=== PATIENT | female | born 2000 | race Caucasian/White ===

== ENCOUNTER 2024-08-24 09:56 | Outpatient (AMB) | payer OTHER, SELFPAY ==
--- NOTE | 2024-08-24 10:25 | MHC.PC.OV ---
Vital Signs 08/24/24 10:40 Height 5 ft 5 in Weight 130 lb 4 oz BMI 21.7 BP 122/60 Blood Pressure Location Lt brachial Position Sitting Respiration 12 Pulse 52 Pulse Source Pulse Oximeter Temp 98.4 F Temp Source Oral Pulse Oximetry (%) 100 Oxygen Delivery Method Room Air Intake Visit Reasons: CLINICAL SUPPORT SPECIALIST EST CARE - Intake Note: patient is scheduled for a new patient visit to establish care with pcp Occup Therapist Required: No Is last menstrual period known: Yes Last menstrual period: 08/11/24 Post menopausal: No Patient : No Allergies No Known Allergies Allergy (Verified 08/24/24 10:39) HPI CLINICAL SUPPORT SPECIALIST EST CARE - HPI Details New Patient? ?? Prior PCP:? Dr James in [place] Last office visit/CPE:? 1 yr Acute issue(s):? Wants New UNDERLINER Wants referral to her Respiratory Care Faculty Anxiety & Depression Dr King Stewart. GI sxs ?? PMHx:? Anxiety/Depression, Boderline pd. Acne, Dermatitis GI problems SurgHx:?Nemours teeth FHx:? Denies SocHx:? Studying Bio & Music. Vapes, EtOH 1-2 dr 1-2 times a week. MJ Daily. No other drugs PFSH Medical History (Updated 08/24/24 @ 10:49 by Jim Winkler) Seborrheic dermatitis Acne Chronic abdominal pain Borderline personality disorder Depression Anxiety Family History (Updated 08/24/24 @ 10:37 by TIP Nice) Maternal Grandfather History of high cholesterol Father Alcoholism Mother Psychiatric disorder Maternal Grandmother Psychiatric disorder Social History (Updated 08/24/24 @ 10:38 by TIP Nice) Use of substances other than those prescribed or required for medical reasons: Yes Substance Use Type: Marijuana Substance Use Frequency: Daily Patient : No Female Reproductive History Menstrual Date of last menstrual period: 08/11/24 Questionnaire PHQ-9 Over the last 2 weeks, how often have you been bothered by any of the following problems? 1. Little interest or pleasure in doing things: several days 2. Feeling down, depressed, or hopeless: nearly every day 3. Trouble falling or staying asleep, or sleeping too much: several days 4. Feeling tired or having little energy: nearly every day 5. Poor appetite or overeating: several days 6. Feeling bad about yourself - or that you are a failure or have let yourself or your family down: more than half the days 7. Trouble concentrating on things, such as reading the newspaper or watching television: several days 8. Moving or speaking so slowly that other people could have noticed. Or the opposite - being so fidgety or restless that you have been moving around a lot more than usual: several days 9. Thoughts that you would be better off or of hurting yourself in some way: several days Total score: 14 Depression Screening Interpretation: Positive Depression Screening Follow-up: In treatment Depression Screening Done: Yes 41882 - PHQ-9 Billing: Yes Source: Developed by Drs. Rayshawn Lorenzo, Yissel Whitlock, Nehemiah Pabon and colleagues, with an educational stephanie from [employer]. Thrive Questionnaire Date Thrive assessed: 08/24/24 I am a: Patient What is your living situation today?: I have a steady place to live Within the past 12 months, did the food you bought not last and you didn't have the money to get more?: Never true Within the past 12 months, did you worry whether your food would run out before you got money to buy more?: Never true Do you have trouble paying for medicines?: No Do you have trouble getting transportation to medical appointments?: No Do you have trouble paying your heating and electricity bill?: No Do you have trouble taking care of your child, family member or friend?: No Do you have trouble with day-to-day activities such as bathing, preparing meals, shopping, managing finances, etc.?: No Are you currently unemployed and looking for a job?: No Are you interested in more education?: Yes Please select the resources that you would like help with: None Currently or been in a relationship where the following occur: No concerns reported THRIVE Score: 0 AUDIT C Alcohol Use Questionnaire (AUDIT-C) 1. How often do you have a drink containing alcohol?: 2-3 times a week 2. How many drinks containing alcohol do you have on a typical day when you are drinking?: 1 or 2 3. How often do you have six or more drinks on one occasion?: Less than monthly Total Score: 4 Score Reviewed/Action Taken: Yes TYESHA-7 AMB Questionnaire TYESHA-7 Date TYESHA - 7 assessed: 08/24/24 Feeling nervous, anxious, or on edge: 3 = Nearly every day Not being able to stop or control worryin = More than half the days Worrying too much about different things: 3 = Nearly every day Trouble relaxin = Nearly every day Being so restless that it is hard to sit still: 3 = Nearly every day Becoming easily annoyed or irritable: 3 = Nearly every day Feeling afraid as if something awful might happen: 1 = Several days Total TYESHA-7 score (0-4 normal; 5-9 mild; 10-14 moderate; 15-21 severe): 18 Source: Developed by Drs. Rayshawn Lorenzo, Yissel Whitlock, Nehemiah Pabon and colleagues, with an educational stephanie from [employer]. TYESHA-7 Assessment Billing TYESHA-7 Assessment Tool: TYESHA-7 Assessment 51669 Review of Systems Const Denies chills, Denies fatigue, Denies fever(s), Denies headache(s) and Denies weakness ENT Denies dizziness and Denies headache(s) Card Denies chest pain, Denies lightheadedness, Denies dyspnea and Denies other (Palpitations) Resp Denies cough, Denies dyspnea, Denies wheezing and Denies other ( shortness of breath) Musc Denies numbness and Denies tingling Neuro Denies dizziness, Denies headache(s), Denies numbness, Denies tingling, Denies paresthesias and Denies weakness Psych Denies anxiety and Denies depression Endo Denies fatigue Aller/Immun Denies wheezing Physical exam (Primary Care) Vital Signs: Last Vital Signs Temp 98.4 F 08/24/24 10:40 Pulse 52 08/24/24 10:40 Resp 12 08/24/24 10:40 BP 122/60 08/24/24 10:40 Pulse Ox 100 08/24/24 10:40 Oxygen Delivery Method Room Air 08/24/24 10:40 BMI result Body Mass Index 21.7 PHQ-9: PHQ-9 Score PHQ-9: Total score 14 08/24/24 10:45 Depression Screening Interpretation: Positive Depression Screening Follow-up: In treatment Thrive Assessment: Date of Thrive Assessment Date Thrive assessed 08/24/24 08/24/24 10:41 Currently or been in a relationship where the following occur: No concerns reported Const General: no acute distress and well developed Nutritional Appearance: well nourished Orientation/consciousness: patient oriented x3 HENMT Head: Yes normocephalic and Yes atraumatic Eyes General: appearance normal, both eyes and all related structures Pupils: Equal, round and reactive pupils present EOM: EOMs intact bilaterally Resp Effort & Inspection: normal respiratory effort Auscultation: clear to auscultation bilaterally Cardio Rate: regular rate Rhythm: regular rhythm Heart sounds: S1 normal heart sound present, S2 normal heart sound present, no gallops, no murmurs and no rubs Neuro General: patient oriented x3 and gait normal Cranial nerves: Yes Equal, round and reactive pupils present Psych Affect: normal affect Coding Level of Care Code New Pt Level 3 (15358) Diagnoses Depression with anxiety F41.8 Chronic abdominal pain R10.9; G89.29 Acne L70.9 Laboratory exam ordered as part of routine general medical examination Z00.00 Additional Codes TYESHA-7 Assessment Billing - TYESHA-7 Assessment Tool: TYESHA-7 Assessment 77489 ([id number]) PHQ-9 - 67967 - PHQ-9 Billing: Yes ([id number]) Assessment & Plan Assessment & Plan (1) Depression with anxiety: Code(s): F41.8 - Other specified anxiety disorders Category: Medical Plan: Currently?has?psychiatrist?and?is?in?treatment.??Had?recent?change?in?her?medication Contracts?for?safety Continue?current?medication?and?follow-up?with?Psychiatry?as?recommended (2) Chronic abdominal pain: Code(s): R10.9 - Unspecified abdominal pain; G89.29 - Other chronic pain Category: Medical Plan: Patient?notes?that?she?had?a?negative?GI?panel?in?the?past. Increase?water?intake Try?soluble?fiber If?she?is?still?having?difficulty,?will?make?a?referral?to?gastroenterology (3) Acne: Code(s): L70.9 - Acne, unspecified Category: Medical Plan: Referred?back?to?her?peoplesoft hcm consultant?at?[facility] (4) Laboratory exam ordered as part of routine general medical examination: Code(s): Z00.00 - Encounter for general adult medical examination without abnormal findings Category: Medical Plan: Check?labs Orders: Orders Comprehensive [place]. Panel Fast Today Z00.00 - Encounter for general adult medical examination without abnormal findings Complete Blood Count Auto Diff Today Z00.00 - Encounter for general adult medical examination without abnormal findings Microalbumin, Random (w Creat) Today I10 - Essential (primary) hypertension Lipid Panel Today Z00.00 - Encounter for general adult medical examination without abnormal findings TSH reflex Free T4 Today Z00.00 - Encounter for general adult medical examination without abnormal findings UA CC w/rflx Micro + Cult Today Z00.00 - Encounter for general adult medical examination without abnormal findings CT NG by PCR Today Z11.3 - Encounter for screening for infections with a predominantly sexual mode of transmission HIV Ab/Ag Today Z11.3 - Encounter for screening for infections with a predominantly sexual mode of transmission Hepatitis B,C Profile Today Z11.3 - Encounter for screening for infections with a predominantly sexual mode of transmission Syphilis Screen Today Z11.3 - Encounter for screening for infections with a predominantly sexual mode of transmission Referrals DEPUTY SHERIFF CHIEF Referral Z12.4 - Encounter for screening for malignant neoplasm of cervix Dermatology Referral L30.9 - Dermatitis, unspecified, L70.9 - Acne, unspecified Medications: New calcium polycarbophil (FiberCon) 625 mg PO DAILY 30 days 30 tabs 2RF L70.9 - Acne, unspecified
[2024-08-24 10:40] VITALS: BP 122/60; PULSE 52; RESP 12; TEMP 36.9; O2SAT 100; BMI 21.7
--- OUTSIDE RECORDS SUMMARY | 2024-08-24 11:29 | XMS_ITS | Encounter Summary ---
Author Organization [facility] Address [address] [place] [phone] Phone Care Team Providers Care Pasteurizer Name Role Phone Nohemi Flood MD Primary Care Provider [phone] Reason for Visit * Reason Onset Date Comments Med Refill Med Refill 05/28/2018 Encounter Details Date Type Department Care Team (Late st Contact Info) Description 05/25/2018 Refill [facility] - [address], [address] [place] [address] Nohemi Flood MD [address] [place] [address] Anxiety; Depressed mood Social History Tobacco Use Types Packs/Day Years Used Date Smoking Tobacco: Never Alcohol Use Standard Drinks/Week Comments No 0 (1 standard drink = 0.6 oz pur e alcohol) Hunger/Food Answer Date Recorded No 05/27/2018 Stable Housing Answer Date Recorded 0 05/27/2018 Transportation Concerns Answer Date Rec orded No 05/27/2018 Hazards in Home Answer Date Recorded No 05/27/2018 Financing Utilities Answer Date Recorde d No 05/27/2018 Safety at Home Answer Date Recorded No 05/27/2018 Outside Support Answer Date Recorded No 05/27/2018 Understanding Health Concerns Answer Da te Recorded No 05/27/2018 Financing Health Concerns Answer Date R ecorded No 05/27/2018 Missing School or Work Answer Date Douglas rded No 05/27/2018 Comments No Sex and Gender Information Value Date Recorded Sex Assigned at Not on file Legal Sex Female 5:44 PM EST Gender Identity Other 05/20/2021 12:16 PM EST Sexual Orientation Not on file documented as of this encounter Miscellaneous Notes * Telephone Encounter - Nohemi Flood MD - 05/28/2018 8:31 AM EST Pt had med recheck appt scheduled 06-22-2018. * Telephone Encounter - Rosmery Clifton LPN - 05/27/2018 4:06 PM EST Mom calling; requesting refill on Fluoxetine 10 mg and 40 mg daily. [facility]. documented in this encounter Plan of Treatment Not on file documented as of this encounter Visit Diagnoses Diagnosis Anxiety Anxiety state, unspecified Depressed mood documented in this encounter Care Teams Pasteurizer Relationship Specialty Start Date End Date Nohemi Flood MD [address] [place] [address] PCP - General Pediatrics 02/03/17 07/31/22 documented as of this encounter
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
--- OUTSIDE RECORDS SUMMARY | 2024-08-24 11:30 | XMS_ITS ---
Author Name [facility] Organization Unknown Encounters Encounter Type Encounter Reason Primary Diagnosis Location Date Ambulatory [facility], [facility]. ([facility]) 05/22/2024
--- OUTSIDE RECORDS SUMMARY | 2024-08-24 11:30 | XMS_ITS | Encounter Summary ---
Author Organization [facility] Address [address] [place] [address] Phone Care Team Providers Care Software Release Manager Name Role Phone Nohemi Flood MD Primary Care Provider [phone] Reason for Visit * Reason Comments Med Refill Encounter Details Date Type Department Care Team (Late st Contact Info) Description 06/03/2020 Refill [facility] Pediatrics - [place] [address] [place] [address] Nohemi Flood MD [address] [place] [address] Depressed mood; Anxiety Social History Tobacco Use Types Packs/Day Years Used Date Smoking Tobacco: Never Alcohol Use Standard Drinks/Week Comments No 0 (1 standard drink = 0.6 oz pur e alcohol) Hunger/Food Answer Date Recorded In the last 12 months, did y ou or your family ever eat less than you felt you should because there wasn't enough money for food? No 09/30/2019 Stable Housing Answer Date Recorded Are you worried that in the next 2 months you may not have stable housing? No 09/30/2019 Transportation Concerns Answer Date Rec orded In the last 12 months, have you or your family ever had to go without healthcare because you didn't have a way to get there? No 09/30/2019 Hazards in Home Answer Date Recorded Think about the place you li ve. Do you have problems with any of the following? Pests (mice or roaches), mold, no/not working smoke detectors, water leaks, no window guards. No 2019 Financing Utilities Answer Date Recorde d In the last 12 months, has t he electric, gas, oil, or water company threatened to shut off your services in your home? No 09/30/2019 Safety at Home Answer Date Recorded Are you or your family worried about feeling saf e in your home? No 09/30/2019 Outside Support Answer Date Recorded Do you feel that you need mo re support from other people or programs to help you care for yourself or your family? No 09/30/2019 Understanding Health Concerns Answer Da te Recorded Do you need help understandi ng your or your child's healthcare needs (diagnosis, medications, plan, etc.)? No 09/30/2019 Financing Health Concerns Answer Date R ecorded In the last 12 months, was t here a time when your child needed to see a doctor or get medications or supplies but could not because of cost? No 09/30/2019 Missing School or Work Answer Date Douglas rded Did you or your child miss s chool or work because of a health problem that could have been avoided? No 09/30/2019 Comments No Sex and Gender Information Value Date Recorded Sex Assigned at Not on file Legal Sex Female 5:44 PM EST Gender Identity Other 05/20/2021 12:16 PM EST Sexual Orientation Not on file documented as of this encounter Plan of Treatment Not on file documented as of this encounter Visit Diagnoses Diagnosis Depressed mood Anxiety Anxiety state, unspecified documented in this encounter Care Teams Software Release Manager Relationship Specialty Start Date End Date Nohemi Flood MD [address] [place] [address] PCP - General Pediatrics 02/03/17 07/31/22 documented as of this encounter
--- OUTSIDE RECORDS SUMMARY | 2024-08-24 11:30 | XMS_ITS | Encounter Summary ---
Author Organization [facility] Address [address] [place] [address] Phone Care Team Providers Care Machine Baster Name Role Phone Nohemi Flood MD Primary Care Provider [phone] Reason for Visit * Reason Comments Med Refill Encounter Details Date Type Department Care Team (Late st Contact Info) Description 10/19/2020 Refill [facility] Pediatrics - [place] [address] [place] [address] Nohemi Flood MD [address] [place] [address] Depressed mood; Anxiety Social History Tobacco Use [...] unspecified documented in this encounter Care Teams Machine Baster Relationship Specialty Start Date End Date Nohemi Flood MD [address] [place] [address] PCP - General Pediatrics 02/03/17 07/31/22 documented as of this encounter
--- OUTSIDE RECORDS SUMMARY | 2024-08-24 11:30 | XMS_ITS | Encounter Summary ---
Author Organization [facility] Address [address] [place] [address] Phone Care Team Providers Care Senior Mechanical Project Manager Name Role Phone Nohemi Flood MD Primary Care Provider Encounter Details Date Type Department Care Team (Late st Contact Info) Description 12/18/2016 Conversion Encounter [facility] Pediatrics - [address], [address] [place] [address] Sayda Collado NP [address] [place] [address] Social History Tobacco Use Types Packs/Day Years Used Date Smoking Tobacco: Never Assessed Comments Unknown Sex and Gender Information Value Date Recorded Sex Assigned at Not on file Legal Sex Female 5:44 PM EST Gender Identity Other 05/20/2021 12:16 PM EST Sexual Orientation Not on file documented as of this encounter Plan of Treatment Not on file documented as of this encounter Visit Diagnoses Not on filedocumented in this encounter Care Teams Senior Mechanical Project Manager Relationship Specialty Start Date End Date Nohemi Flood MD [address] [place] [address] PCP - General Pediatrics 02/03/17 07/31/22 documented as of this encounter
== END 2024-08-24 11:05 | disposition home or self-care (01) ==
PROVIDERS: PCP Family Medicine; Visit Provider Family Medicine
DX: F41.8 Other specified anxiety disorders (principal); R10.9 Unspecified abdominal pain; G89.29 Other chronic pain; L70.9 Acne, unspecified; Z00.00 Encounter for general adult medical examination without abnormal findings

== ENCOUNTER → 2024-08-24 09:56 | Outpatient (BNVA) | payer OTHER, SELFPAY | PROVIDERS: PCP Family Medicine; Visit Provider Family Medicine | DX: Z76.89 Persons encountering health services in other specified circumstances (principal); F41.8 Other specified anxiety disorders; R10.9 Unspecified abdominal pain; G89.29 Other chronic pain; L70.9 Acne, unspecified | CPT/HCPCS: 96127 ==

== ENCOUNTER 2024-09-28 11:07 | Outpatient (REF) | payer OTHER, SELFPAY ==
--- OUTSIDE RECORDS SUMMARY | 2024-09-28 12:25 | XMS_ITS | Encounter Summary ---
Author Organization [facility] Address [address] [place] [address] Phone Care Team Providers Care Refinery Operator Coking Name Role Phone Nohemi Flood MD Primary Care Provider [phone] Encounter Details Date Type Department Care Team (Late st Contact Info) Description 12/18/2016 Conversion Encounter [facility] Pediatrics - [address], [address] [place] [address] Sayda Collado NP [address] [place] [address] Social History Tobacco Use Types Packs/Day Years [...] on filedocumented in this encounter Care Teams Refinery Operator Coking Relationship Specialty Start Date End Date Nohemi Flood MD [address] [place] [address] PCP - General Pediatrics 02/03/17 07/31/22 documented as of this encounter
--- OUTSIDE RECORDS SUMMARY | 2024-09-28 12:25 | XMS_ITS | Encounter Summary ---
Author Organization [facility] Address [address] [place] [address] Phone Care Team Providers Care Care Services Manager Name Role Phone Nohemi Flood MD Primary Care Provider [phone] Reason for Visit * Reason Comments Med Refill Encounter Details Date Type Department Care Team (Late st Contact Info) Description 06/03/2020 Refill [facility] Pediatrics - [place] [address] [place] [address] Nohemi Flood MD [address] [place] [address] Depressed mood; Anxiety Social History Tobacco Use [...] unspecified documented in this encounter Care Teams Care Services Manager Relationship Specialty Start Date End Date Nohemi Flood MD [address] [place] [address] PCP - General Pediatrics 02/03/17 07/31/22 documented as of this encounter
--- OUTSIDE RECORDS SUMMARY | 2024-09-28 12:25 | XMS_ITS | Encounter Summary ---
Author Organization [facility] Address [address] [place] [address] Phone Care Team Providers Care Pipe Changer Name Role Phone Nohemi Flood MD Primary Care Provider [phone] Reason for Visit * Reason Onset Date Comments Med Refill Med Refill 05/28/2018 Encounter Details Date Type Department Care Team (Late st Contact Info) Description 05/25/2018 Refill [facility] Pediatrics - [address], [address] [place] [address] Nohemi Flood MD [address] [place] [address] Anxiety; Depressed mood Social History Tobacco Use [...] mood documented in this encounter Care Teams Pipe Changer Relationship Specialty Start Date End Date Nohemi Flood MD [address] [place] [address] PCP - General Pediatrics 02/03/17 07/31/22 documented as of this encounter
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
--- OUTSIDE RECORDS SUMMARY | 2024-09-28 12:25 | XMS_ITS | Encounter Summary ---
Author Organization [facility] Address [address] [place] [address] Phone Care Team Providers Care Health Plan Specialist Name Role Phone Nohemi Flood MD Primary Care Provider [phone] Reason for Visit * Reason Comments Med Refill Encounter Details Date Type Department Care Team (Late st Contact Info) Description 10/19/2020 Refill [facility] Pediatrics - [place] [address] [place] [address] Nohemi Flood MD [address] [place] [address] Depressed mood; Anxiety Social History Tobacco Use [...] unspecified documented in this encounter Care Teams Health Plan Specialist Relationship Specialty Start Date End Date Nohemi Flood MD [address] [place] [address] PCP - General Pediatrics 02/03/17 07/31/22 documented as of this encounter
--- OUTSIDE RECORDS SUMMARY | 2024-09-28 12:25 | XMS_ITS | Data Portability ---
Author Organization [facility] Address [address] [place] [address] Assessment No assessment recorded. Plan of Treatment Reminders Order Date Submit Date Provider Last Modified By Organization Details Last Modified Time Details Appointments None recorded. Lab rapid flu (A+B) 2024 025 [email or web address] [facility], [address] [place] [address], [id number], 19:27:27 SARS CoV 2 (COVID-19) Ag, QL, IA, upper respiratory specimen 2024 025 [email or web address] [facility], [address] [place] [address], [phone], 19:27:27 Referral None recorded. Procedures None recorded. Surgeries None recorded. Imaging electrocard iogram 2024 025 [email or web address] [facility], [address] [place] [address], [phone], 19:38:46 Medication Orders Tamiflu 75 mg capsule 2024 025 [facility] #[id number], [phone] [place], [address], 19:35:38 Patient TargetsNo targets recorded. Patient Instructions Encounter Date Encounter Id Patient Instructions Last Modified By Organization Details Last Modified Time 05/22/2024 [id number] influenza (flu): care instructions [email or web address] Not available 05/22/2024 19:33:12 Reason for Referral None Reported. Results Created Date Observation Date Name Description Value Unit Range Abnormal Flag Note LastModifiedBy Organization Detail LastModifiedTime 05/22/19 25 05/22/2024 rapid flu (A+B) Unknown Analyte positi ve Not Available [facility] [address] [place] [address], [phone], 05/22/2024 19:03:39 05/22/19 25 05/22/2024 rapid flu (A+B) Unknown Analyte negati ve Not Available [facility] [address] [place] [address], [id number], 05/22/2024 19:03:39 05/22/19 25 05/22/2024 rapid flu (A+B) Unknown Analyte yes Not Available [facility] [address] [place] [address], [id number], 05/22/2024 19:03:39 05/22/19 25 05/22/2024 SARS CoV 2 (COVI D-19) Ag, QL, IA, upper respi rator y speci men Unknown Analyte negati ve Not Available [facility] [address] [place] [address], [id number], 05/22/2024 19:03:51 05/22/19 25 05/22/2024 SARS CoV 2 (COVI D-19) Ag, QL, IA, upper respi rator y speci men Unknown Analyte yes Not Available [facility] [address] [place] [address], [id number], 05/22/2024 19:03:51 05/22/19 25 05/22/2024 martin thomas am No observ ation record ed. JOANIE [facility] [address] [place] [address], [phone], 05/22/2024 19:27:16 05/23/19 25 martin thomas am No observ ation record ed. [facility] [address], [address], 05/23/2024 18:07:58 Result Notes None recorded. Problems Name Problem SNOMED Code Status Onset Date Resolution Date Notes Provider Name and Address Organization Details Recorded Time Anxiety 39829585 Active Brie Abel null, PA - [facility] 19:02:11 Depressive disorder 80276331 Active Brie Abel null, PA - [facility] 19:02:22 Personality disorder 09020757 Active Brie Abel null, PA - [facility] 19:02:32 Problem Notes None recorded. Procedures Surgical History None recorded. Imaging Results Imaging Date Name Status LastModified by Organization Details LastModified Time 05/22/2024 electrocardiogram completed JESSIE [id number], [address], 05/22/2024 19:27:16 05/23/2024 electrocardiogram completed JESSIE [address], [phone], 05/23/2024 18:07:58 Procedure Notes None recorded. Medical Equipment None Reported. Allergies No known drug allergies Medications Name Sig Start Date Stop Date Status Note LastModified by Organization Details LastModified Time lamotrigine 200 mg tablet TAKE ONE TABLET BY MOUTH EVERY DAY active Not Available Not Available No t Available ketoconazol e 2 % shampoo USE SHAMPOO ON THE SCALP ONCE-TWIC E WEEKLY ; LATHER AND LET SIT FOR ABOUT 10 MINUTES AND THEN RINSE WITH A MOISTURIZ ING SHAMPOO 05/22 completed Not Available Not Available Not Available ibuprofen 800 mg tablet TAKE ONE TABLET BY MOUTH EVERY 8 HOURS NEEDED FOR PAIN 05/22 completed Not Available Not Available Not Available Tamiflu 75 mg capsule Take 1 capsule twice a day by oral route for 5 days. 2024 active Not Available Not Available Not Avai lable clindamycin 1 % topical gel APPLY A THIN LAYER TO FACE TWICE DAILY. FOLLOW WITH A MOISTURIZ ER active Not Available Not Available No t Available hydrocortis one 1 % topical cream APPLY TOPICALLY TWO TIMES A DAY active Not Available Not Available No t Available escitalopra m 10 mg tablet TAKE 1 &1/2 TABLETS BY MOUTH DAILY 05/22 completed Not Available Not Available Not Available escitalopra m 20 mg tablet TAKE ONE TABLET BY MOUTH EVERY DAY active Not Available Not Available No t Available (21) 1.5 mg-30 mcg tablet TAKE ONE TABLET BY MOUTH EVERY DAY active Not Available Not Available No t Available (28) 1.5 mg-30 mcg (21)/75 mg (7) tablet TAKE ONE TABLET BY MOUTH EVERY DAY AT THE SAME TIME EACH DAY active Not Available Not Available No t Available mometasone 0.1 % topical solution APPLY SOLUTION TO THE SCALP TWICE DAILY X UP TO 2 WEEKS AT A TIME ; NEEDED FOR ITCHING OR FLAKING ; BREAK ONE WEEK AND REPEAT NEEDED 05/22 completed Not Available Not Available Not Available Vitals Date Recorded Oxygen saturation Oxygen saturation in Arterial blood by Pulse oximetry Heart rate Respiratory rate Body temperature Systolic blood pressure Diastolic blood pressure Provider Name and Address Organization Details Last Updated DateTime 98 % 98 % 80 /min 20 /min 99 [degF] 130 mm[Hg] 85 mm[Hg] Brie SANTOS - [email or web address] 19:01:19 Social History Question Answer Notes LastModified by [email or web address] Details LastModified Time Tobacco Smoking Status Never Smoker Brie parker PA - [facility] 05/22/2024 19:03:04 Which Illicit Or Recreational Drugs Have You Used? Marijuana Information not available 05/22/2024 Have You Had A Flu Shot This Season? No Information not available 05/22/2024 If No, Would You Like A Flu Shot Today? No Information not available 05/22/2024 What Is Your Water Source? Other Information not available 05/22/2024 What Is Your Heat Source? Other Information not available 05/22/2024 Are You Passively Exposed To Smoke? No Information no t available 05/22/2024 Have You Recently Traveled Abroad? No Information not available 05/22/2024 Are You Currently In School? No Information not available 05/22/2024 Sex: Unknown Functional Status Question Answer Note LastModified by Organizat ion Details LastModified Time How many times per week do you consume alcohol? Less than 1 time per week Information not available 05/22/2024 Do you use any illicit or recreational drugs? Yes Information not available 05/22/2024 Do you or have you ever used any other forms of tobacco or nicotine? No Information not available 05/22/2024 What is your level of alcohol consumption? Occasional Information not available 05/22/2024 Are you currently employed? Yes Information not available 05/22/2024 Mental Status None recorded. Family History Relationship Description Onset Age of this Age Resolved Age Notes LastModified by Organization Details LastModified Time Father No current problems or disability Not available 05/22 19:02:34 Mother No current problems or disability Not available 05/22 19:02:35 Medical History No medical history recorded. Gynecological History Statement/Question Response Date of LMP 05/12/2024 Is there any chance of ? No LMP Approximate Obstetrics History GPAL:G 0 P 0 0 0 0 Past Encounters Encounter ID Performer Location Encounter Start Date Encounter Closed Date Diagnosis/Indication Diagnosis SNOMED-CT Code Diagnosis ICD10 Code Diagnosis Note [id number] [facility] [address] [address] 09/05/2020 15:17:31 09/05/2020 16:08:16 [id number] [facility] [address] [address] 06/19/2018 13:46:34 06/19/2018 14:49:54 [id number] Praful Puga DO [address] [address] 05/22/2024 18:50:59 05/22/2024 19:38:46 Influenza caused by Influenza A virus [id number] J09.X2 Flu A positive Recommend plenty of fluidsTyle nol, Motrin for pain/fever Humidifier Nasal saline sprayNo need for antibiotic may last up to 2 weeksCall or RTC if worsening cough, SOB, high fever, rash, n/v/d and unable to hydrate Health Concerns Section Related Observation LastModified by Organization Detai ls LastModified Time None Recorded Concern Status LastModified by Organization Details LastModified Time None Recorded Advance Directives Directive None Recorded Payers Insurance Date Sequence Insurance Name Policy Number Policy Goodrich Covered Member ID Goodrich Member ID Guarantor Name 05/22/2024 1 [facility] [place] Rosana Singleton [id number] Rosana Singleton 05/22/2024 1 [facility] [place] [id number] Maragrita Serina Singleton [id number] Rosana Singleton Notes Date Note Type Note Provider Name and Address Organization Details Recorded Time 05/22/2024 text/html CoughReported bypatient.Notes:23 yo female c/o cough and congestion x 1 d+ anterior chest wall pain when she coughs neg home covid test non [place] h/o asthma No feverNo chillsNo nauseaNo vomitingNo wheezeNo difficulty breathing or respiratory distressNo CPNo sinus painNo ear painNo sore throatNo Abdominal painNo diarrheaNo myalgiaNo fatigueNo rashNo HANo dizzinessNo recent travelNo known sick contacts Praful Puga, DO [address] [place], [address], [place] - [facility] 05/22/2024 19:37:34 OBGyn Episode No OBEpisode recorded.
[2024-09-28 14:23] LABS: MANUAL DIFF FLAG NO
[2024-09-28 14:30] LABS: Basophils Percent Auto 0.9 % (0-2); Eosinophils Absolute Auto 0.3 X10*3/uL (0.0-0.4); Eosinophils Percent Auto 6.7 % (0-4); Hematocrit 41.3 % (37.0-47.0); Hemoglobin 14.4 g/dl (12.0-16.0); Lymphocytes Percent Auto 42.6 % (20-40); Mean Corpuscular HGB Conc 34.9 g/dl (31.0-35.0); Mean Corpuscular Hemoglobin 31.4 pg (27.0-33.0); Mean Platelet Volume 9.3 fL (9.4-12.3); Monocytes Absolute Auto 0.3 X10*3/uL (0.1-1.2); Monocytes Percent Auto 7.1 % (2-11); Neutrophils Percent Auto 42.7 % (45-73); Platelet Count 362 X10*3/uL (160-400); Red Blood Count 4.59 X10*6/uL (4.20-5.50); Red Cell Distribution Width 11.7 % (11.0-16.0); White Blood Count 4.6 X10*3/uL (4.8-10.8)
[2024-09-28 14:43] LABS: Alanine Aminotransferase 15 U/L (0-31); Alkaline Phosphatase 66 U/L (39-117); Anion Gap 12 (12-20); Aspartate Amino Transferase 20 U/L (5-31); Bilirubin Total 1.8 mg/dL (0.0-1.0); Blood Urea Nitrogen 6 mg/dL (9-16); Calcium 9.9 mg/dL (8.4-10.2); Carbon Dioxide 26 mmol/L (22-29); Chloride 104 mmol/L (96-108); Cholesterol 193 mg/dL (<200); Estimated Glomerular Filt Rate > 60; Glucose Fasting 81 mg/dL (60-99); HDL Cholesterol 70 mg/dL (>40); LDL Cholesterol Calculated 104 mg/dL (<100); Potassium 4.1 mmol/L (3.3-5.1); Sodium 138 mmol/L (135-145); Triglycerides 98 mg/dL (<150)
[2024-09-28 15:02] LABS: TSH reflex Free T4 1.77 uIU/mL (0.32-4.0)
[2024-09-29 03:30] LABS: Syphilis Screen Nonreactive (Nonreactive)
[2024-09-29 03:41] LABS: HBS Num1 0.22 mIU/mL (0-7.99); HBc Num1 0.04 S/CO (0.00-0.79); HBsAGNum1 0.41 S/CO (0.00-0.99); HIV AB/AG Nonreactive (Nonreactive); HIV Num 1 0.07 S/CO (0.00-0.99); Hepatitis B Core Antibody Nonreactive (Nonreactive); Hepatitis B Surface Antigen Negative (Negative); ~HepC Num1 0.08 S/CO (0.00-0.79); ~Hepatitis B Surface Antibody NONREACTIVE (Nonreactive); ~Hepatitis C Antibody Nonreactive (Nonreactive)
== END 2024-09-28 11:08 | disposition home or self-care (01) ==
LOC: HO.WFDLDS 11:07
PROVIDERS: Visit Provider Family Medicine
DX: Z00.00 Encounter for general adult medical examination without abnormal findings (principal); Z11.3 Encounter for screening for infections with a predominantly sexual mode of transmission
CPT/HCPCS: 36415; 80053; 80061; 84443; 85025; 86704; 86706; 86780; 86803; 87340; 87389

== ENCOUNTER 2024-12-06 17:44 | Outpatient (REF) | payer OTHER, SELFPAY ==
--- OUTSIDE RECORDS SUMMARY | 2024-12-06 17:47 | XMS_ITS ---
Author Name [facility] Organization Unknown Encounters Encounter Type Encounter Reason Primary Diagnosis Location Date Ambulatory [facility] ([facility] 05/22/2024
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
--- OUTSIDE RECORDS SUMMARY | 2024-12-06 17:47 | XMS_ITS | Data Portability ---
Author Organization [facility] Address [address] [place] [address] Assessment No assessment recorded. Plan of Treatment Reminders Order Date Submit Date Provider Last Modified By Organization Details Last Modified Time Details Appointments None recorded. Lab rapid flu (A+B) 2024 025 [email or web address] [address] [place] [address], [phone], 19:27:27 SARS CoV 2 (COVID-19) Ag, QL, IA, upper respiratory specimen 2024 [email or web address] [facility], [address] [place] [address], [phone], 19:27:27 Referral None recorded. Procedures None recorded. Surgeries None recorded. Imaging electrocard iogram 2024 025 [email or web address] [facility] [address] [place] [address], [id number], 19:38:46 Medication Orders Tamiflu 75 mg capsule 2024 025 [facility] #[id number], [phone] [place], [address], 19:35:38 Patient TargetsNo targets recorded. Patient Instructions Encounter Date Encounter Id Patient Instructions Last Modified By Organization Details Last Modified Time 05/22/2024 [id number] influenza (flu): care instructions [email or web address] Not available 05/22/2024 19:33:12 Reason for Referral None Reported. Results Created Date Observation Date Name Description Value Unit Range Abnormal Flag Note LastModifiedBy Organization Detail LastModifiedTime 05/22/1905/22/2024 rapid flu (A+B) Unknown Analyte positi ve Not Available [facility] [address] [place] [address], [phone], 05/22/2024 19:03:39 05/22/19 25 05/22/2024 rapid flu (A+B) Unknown Analyte negati ve Not Available [facility] [address] [place] [address], [phone], 05/22/2024 19:03:39 05/22/19 25 05/22/2024 rapid flu (A+B) Unknown Analyte yes Not Available [facility] [address] [place] [address], [phone], 05/22/2024 19:03:39 05/22/19 25 05/22/2024 SARS CoV 2 (COVI D-19) Ag, QL, IA, upper respi rator y speci men Unknown Analyte negati ve Not Available [facility] [address] [address] [place] [address], [phone], 05/22/2024 19:03:51 05/22/19 25 05/22/2024 SARS CoV 2 (COVI D-19) Ag, QL, IA, upper respi rator y speci men Unknown Analyte yes Not Available [facility] [address] [place] [address], [phone], 05/22/2024 19:03:51 05/22/19 25 05/22/2024 martin thomas am No observ ation record ed. JOANIE [facility] [address] [place] [address], [phone], 05/22/2024 19:27:16 05/23/19 25 elect barbara diogr am No observ ation record ed. [id number] [address] [place], [phone], 05/23/2024 18:07:58 Result Notes None recorded. Problems Name Problem SNOMED Code Status Onset Date Resolution Date Notes Provider Name and Address Organization Details Recorded Time Anxiety 01808884 Active Brie Abel null, PA - [facility] 19:02:11 Depressive disorder 04893874 Active Brie Abel null, PA - [facility] 19:02:22 Personality disorder 89001572 Active Brie Abel null, PA - [facility] 19:02:32 Problem Notes None recorded. Medical Equipment None Reported. [...] Not Available Not Available No t Available 1.5/30 (28) 1.5 mg-30 mcg (21)/75 mg (7) [...] Heart rate Respiratory rate Body temperature Systolic And Diastolic Provider Name and Address Organization Details Last Updated DateTime 98 % 98 % 80 /min 20 /min 99 [degF] 130/85 mm[Hg] Brie Roman [facility] 19:01:19 Social History Question Answer Notes LastModified by [place] Details LastModified Time Tobacco Smoking Status Never Smoker Brie parker [facility] 05/22/2024 19:03:04 Which Illicit Or Recreational [...] Functional Status Question Answer Note LastModified by [place] Details LastModified Time How many times per [...] SNOMED-CT Code Diagnosis ICD10 Code Diagnosis Note [id number] 20994_[facility] _[address] [phone] 09/05/2020 15:17:31 09/05/2020 16:08:16 [id number] 2099_[facility] _[address] [address] 06/19/2018 13:46:34 06/19/2018 14:49:54 [id number] Praful Puga DO _[address] [phone] 05/22/2024 18:50:59 05/22/2024 19:38:46 Influenza caused by Influenza A virus [id number] J09.X2 Flu A positive Recommend plenty of [...] Goodrich Member ID Guarantor Name 05/22/2024 1 [facility] [place] Rosana Singleton [id number] 3 Rosana Singleton 05/22/2024 1 [facility]: [facility] [place] [id number] Margarita Singleton [id number] Rosana Singleton OBGyn Episode No OBEpisode recorded.
[2024-12-06 17:52] LABS: Appearance Urine Cloudy; Glucose Urine UA Negative (Negative); PH 8.5 (5.0-9.0); Specific Gravity - Urine 1.015 (1.005-1.025); UMIC TRIGGER UACC YES
[2024-12-06 17:59] LABS: UACC Culture Trigger YES
[2024-12-06 18:06] LABS: Microalbum/Creatinine Ratio Ur 12.4 ug/mg cr (<30)
[2024-12-07 05:07] LABS: CT PCR Urine NOT DETECTED (Not Detect.); NG PCR Urine NOT DETECTED (Not Detect.)
== END 2024-12-06 17:45 | disposition home or self-care (01) ==
LOC: HO.LNP 17:44
PROVIDERS: Visit Provider Family Medicine
DX: Z11.3 Encounter for screening for infections with a predominantly sexual mode of transmission (principal); Z11.8 Encounter for screening for other infectious and parasitic diseases; I10 Essential (primary) hypertension; Z13.89 Encounter for screening for other disorder
CPT/HCPCS: 81001; 82043; 82570; 87086; 87491; 87591

== ENCOUNTER 2024-12-08 13:42 | Outpatient (AMB) | payer OTHER, SELFPAY ==
--- NOTE | 2024-12-08 14:10 | A.OFFPC_ITS ---
Vital Signs 12/08/24 14:12 Height 5 ft 5 in Weight 126 lb 4 oz BMI 21.0 BP 114/60 Blood Pressure Location Rt brachial Position Sitting Respiration 14 Pulse 63 Pulse Source Pulse Oximeter Temp 97.8 F Temp Source Oral Pulse Oximetry (%) 96 Oxygen Delivery Method Room Air Intake Visit Reasons: CPE with f/u labs and health maint. Intake Note: patient is scheduled for cpe Prescription Clerk Lenses Required: No Is last menstrual period known: Yes Last menstrual period: 11/29/24 Post menopausal: No Patient : No Allergies No Known Allergies Allergy (Verified 12/08/24 14:11) Medication List - Last Reconciled 12/08/24 by Mark Mcdonald MD calcium polycarbophil (FiberCon) 625 mg PO DAILY 30 days clindamycin phosphate 1% 1 appl topical BID escitalopram oxalate 20 mg PO DAILY ketoconazole 2% topical lamotrigine 200 mg PO DAILY norethindrone-e.estradiol-iron 1.5 mg-30 mcg ()/75 mg (7) ( FE 1.10/08 ()) 1 tab PO DAILY omeprazole 20 mg PO DAILY 30 days HPI CPE with f/u labs and health maint. HPI Details 24 y/o female presents for a CPE with f/ u labs and health maint. Labs drawn 09/28/24. Reviewed labs with pt. Triglycerides 98. TC 193. LDL 104. HDL 70. 4+ urine bacteria. Denies any symptoms. [facility] Medical History (Updated 12/08/24 @ 14:40 by Jim Winkler) Seborrheic dermatitis Acne Chronic abdominal pain Borderline personality disorder Depression Anxiety Family History (Updated 08/24/24 @ 10:37 by TIP Nice) Maternal Grandfather History of high cholesterol Father Alcoholism Mother Psychiatric disorder Maternal Grandmother Psychiatric disorder Social History (Updated 08/24/24 @ 10:38 by TIP Nice) Substance Use Type: Marijuana Female Reproductive History Menstrual Date of last menstrual period: 11/29/24 Questionnaire Thrive Questionnaire Date Thrive assessed: 08/24/24 I am a: Patient What is your living situation today?: I have a steady place to live Within the past 12 months, did the food you bought not last and you didn't have the money to get more?: Never true Within the past 12 months, did you worry whether your food would run out before you got money to buy more?: Never true Do you have trouble paying for medicines?: No Do you have trouble getting transportation to medical appointments?: No Do you have trouble paying your heating and electricity bill?: No Do you have trouble taking care of your child, family member or friend?: No Do you have trouble with day-to-day activities such as bathing, preparing meals, shopping, managing finances, etc.?: I choose not to answer this question Are you currently unemployed and looking for a job?: No Are you interested in more education?: Yes Please select the resources that you would like help with: None THRIVE Score: 0 TYESHA-7 AMB Questionnaire TYESHA-7 Date TYESHA - 7 assessed: 08/24/24 Source: Developed by Drs. Rayshawn Lorenzo, Yissel Whitlock, Nehemiah Pabon and colleagues, with an educational stephanie from [employer]. Review of Systems Const Denies chills, Denies fatigue, Denies fever(s), Denies headache(s) and Denies weakness Eyes Denies change in vision ENT Denies dizziness, Denies headache(s), Denies hearing loss, Denies nasal congestion, Denies sinus pain, Denies sinus pressure and Denies sore throat Card Denies chest pain, Denies lightheadedness, Denies dyspnea and Denies other (palpitations) Resp Denies cough, Denies dyspnea and Denies wheezing GI Denies abdominal pain, Denies melena, Denies hematochezia, Denies change in bowel habits, Denies dyspepsia and Denies nausea Denies hematuria and Denies dysuria Musc Denies abnormal gait, Denies myalgias, Denies arthralgias, Denies numbness and Denies tingling Skin/Breast Denies rash, Denies unusual bruising and Denies wounds Neuro Denies abnormal gait, Denies dizziness, Denies headache(s), Denies memory loss, Denies numbness, Denies Sensory deficit (Neuro), Denies tingling and Denies weakness Psych Denies anxiety, Denies depression and Denies memory loss Endo Denies cold intolerance, Denies fatigue, Denies heat intolerance, Denies polydipsia and Denies polyuria Wang/Lymph Denies easy bleeding and Denies easy bruising Aller/Immun Denies wheezing Physical exam (Primary Care) Vital Signs: Last Vital Signs Temp 97.8 F 12/08/24 14:12 Pulse 63 12/08/24 14:12 Resp 14 12/08/24 14:12 BP 114/60 12/08/24 14:12 Pulse Ox 96 12/08/24 14:12 Oxygen Delivery Method Room Air 12/08/24 14:12 BMI result Body Mass Index 21.0 Thrive Assessment: Date of Thrive Assessment Date Thrive assessed 08/24/24 12/08/24 14:15 Const General: no acute distress, well developed, alert and awake Nutritional Appearance: well nourished Orientation/consciousness: patient oriented x3 HENMT Head: Yes normocephalic and Yes atraumatic Ears: hearing grossly normal bilaterally and TM's normal bilaterally General nose exam: Normal external nose present and Normal nares present Mouth: Normal oral and palatal mucosa present and moist mucous membranes Teeth and gingiva: dentition normal Throat: Yes posterior oropharynx normal Eyes General: appearance normal, both eyes and all related structures Pupils: Equal, round and reactive pupils present and Pupil accommodation reflex normal EOM: EOMs intact bilaterally Neck Neck: Yes normal visual inspection, Yes no lymphadenopathy and Yes trachea midline Thyroid: Thyroid normal Carotids: no bruits Lymphatic: no lymphadenopathy noted Chest Chest palpation & inspection: normal inspection of the chest Resp Effort & Inspection: normal respiratory effort Auscultation: clear to auscultation bilaterally Cardio Rate: regular rate Rhythm: regular rhythm Heart sounds: S1 normal heart sound present, S2 normal heart sound present, no gallops, no murmurs and no rubs Bruits: no abdominal aortic bruits and no carotid bruits GI Palpation (GI): No Abdominal aortic bruit present, Soft to palpation, nontender, No hepatosplenomegaly present and No Rebound tenderness present Auscultation: normal bowel sounds General: Yes no CVA tenderness Back/Spine/Pelvis Back: no CVA tenderness Cervical Spine: cervical ROM normal and No Cervical spine tenderness Thoracic/Lumbar Spine: thoraco-lumbar ROM normal, No pain with thoraco-lumbar ROM, No thoracic spinal tenderness and No lumbar spinal tenderness Skin Lesions: no lesions Rashes: no rashes Trauma: no lacerations or abrasions Wounds: no wounds Nails: normal Neuro General: patient oriented x3 Cranial nerves: Yes Equal, round and reactive pupils present Cognition (Neuro): normal cognition Gait exam (Neuro): Normal gait present Motor exam (neuro): 5/5 motor strength present throughout Sensory Exam: No Sensory deficit (Neuro) Deep tendon reflexes (DTR's): Right patellar reflex intensity grade: 2+ and Left patellar reflex intensity grade: 2+ Extrem General: Yes normal to inspection and No edema Psych Appearance: grossly normal Affect: normal affect Attitude: cooperative Thought process: Normal thought process present Coding Level of Care Code New Pt Prev Care 18-39yr([id number] Diagnoses Adult general medical exam Z00.00 Screening for cervical cancer Z12.4 Elevated LDL cholesterol level E78.00 Screening for STD (sexually transmitted disease) Z11.3 Asymptomatic bacteriuria R82.71 GERD (gastroesophageal reflux disease) K21.9 Assessment & Plan Assessment & Plan (1) Adult general medical exam: Code(s): Z00.00 - Encounter for general adult medical examination without abnormal findings Category: Medical Plan: 24-year-old female presents for complete physical exam Exam within normal limits (2) Screening for cervical cancer: Code(s): Z12.4 - Encounter for screening for malignant neoplasm of cervix Category: Medical Plan: Patient has an appointment with a tinning equipment tender (3) Elevated LDL cholesterol level: Code(s): E78.00 - Pure hypercholesterolemia, unspecified Category: Medical Plan: Mildly LDL cholesterol. HDL ratio is good No need for medication at this time Encouraged healthy diet low in saturated fats and cholesterol (4) Screening for STD (sexually transmitted disease): Code(s): Z11.3 - Encounter for screening for infections with a predominantly sexual mode of transmission Category: Medical Plan: Asymptomatic STI screening all negative (5) Asymptomatic bacteriuria: Code(s): R82.71 - Bacteriuria Category: Medical Plan: Asymptomatic Encouraged hydration She will let me know if she has any symptoms (6) GERD (gastroesophageal reflux disease): Code(s): K21.9 - Gastro-esophageal reflux disease without esophagitis Category: Medical Plan Patient gets dyspepsia and acid reflux more than once a week. She tries to avoid triggers Will have her trial omeprazole She can switch to a strategy of anticipation of symptoms when symptoms appear well managed. She will let know if not improving worsens - would have her see GI Orders: Orders Complete Blood Count Auto Diff Today Z00.00 - Encounter for general adult medical examination without abnormal findings Lipid Panel Today Z00.00 - Encounter for general adult medical examination without abnormal findings TSH reflex Free T4 Today Z00.00 - Encounter for general adult medical examination without abnormal findings UA CC w/rflx Micro + Cult Today Z00.00 - Encounter for general adult medical examination without abnormal findings Comprehensive Lerona. Panel Fast Today Z00.00 - Encounter for general adult medical examination without abnormal findings Microalbumin, Random (w Creat) Today I10 - Essential (primary) hypertension Medications: New omeprazole 20 mg PO DAILY 30 caps 1RF 30 days
[2024-12-08 14:12] VITALS: BP 114/60; PULSE 63; RESP 14; TEMP 36.6; O2SAT 96; BMI 21.0
--- OUTSIDE RECORDS SUMMARY | 2024-12-08 14:21 | XMS_ITS | Clinical Summary ---
Author Organization [facility] Address [address] [place] [address] Phone Care Team Providers Care Customer Service Manager Name Role Phone Nohemi Flood MD [...] EDT) CHLAMYDIA TRACHOMATIS Not Detected Not Detected [facility] NEISERIA GONORRHOEAE Not Detected Not Detected [facility] SPECIMEN TYPE URINE [facility] Urine (Urine) 12/25/2021 12: 23 PM EDT 12/25/2021 12:46 PM EDT Mick Negron MD NON CULTURE MICROBIOLOGY Le pino Result [facility] [address] [place] [address] from Last 3 Months or Most Recently Relevant to Health Maintenance [place] [address] [address] [facility] [place] [address] [facility] [place] [address] [facility] [place] [facility] [place] [address] [place] [facility] [place] [address] Care Teams Customer Service Manager Relationship Specialty Start Date End Date Nohemi Flood MD [address] [place] [address], [facility] [address] [place] [address] [email or web address] PCP - General Pediatrics 11/28/17 Additional Source Comments The information contained in this document represents components of the legal health record. It is not the complete legal health record.[facility]
--- OUTSIDE RECORDS SUMMARY | 2024-12-08 14:21 | XMS_ITS | Encounter Summary ---
Author Organization [facility] Address [address] [place] [id number] Phone Care Team Providers Care Ground Wood Supervisor Name Role Phone Nohemi Flood MD Primary Care Provider [phone] Reason for Visit * Reason Onset Date Comments Med Refill Med Refill 05/28/2018 Encounter Details Date Type Department Care Team (Late st Contact Info) Description 05/25/2018 Refill [facility] - [address], [address] [place] [address] Nohemi Flood MD [address] [place] [address] Anxiety; Depressed mood Social History Tobacco Use [...] mood documented in this encounter Care Teams Ground Wood Supervisor Relationship Specialty Start Date End Date Nohemi Flood MD [address] [place] [address] PCP - General Pediatrics 02/03/17 07/31/22 documented as of this encounter
== END 2024-12-08 14:37 | disposition home or self-care (01) ==
LOC: HO.HMCFM 13:42
PROVIDERS: PCP Family Medicine; Visit Provider Family Medicine
DX: Z00.00 Encounter for general adult medical examination without abnormal findings (principal); E78.00 Pure hypercholesterolemia, unspecified; Z11.3 Encounter for screening for infections with a predominantly sexual mode of transmission; R82.71 Bacteriuria; K21.9 Gastro-esophageal reflux disease without esophagitis